=== PATIENT | male | born 1985 | race Caucasian/White ===

== ENCOUNTER 2018-08-01 11:54 | Emergency (ER) | payer OTHER ==
[2018-08-01 12:00] VITALS: RESP 18
--- NOTE | 2018-08-01 12:35 | ED ---
General Adult HPI - General Chief complaint: Recheck/Abnormal Lab/Rx Stated complaint: MISSED DIABETIC MEDICINE Source: patient Mode of arrival: ambulatory Limitations: no limitations - History of Present Illness Initial comments: Dictation was produced using [employer] dictation software. please excuse any grammatical, word or spelling errors. Chief Complaint: 33-year-old type I diabetic presents after he ran out of insulin. History of Present Illness: Patient is a 33-year-old male type 1 diabetes presents with runny of insulin. Patient takes he takes 03/17/1931 insulin. He takes 30 units in the morning and 40 units at night. Patient has not had his sugars checked and well. He does not have a glucometer. Patient presents with request for insulin administration. He has missed approximately 2 doses in the last 48 hours. Able to take insulin today because pharmacies are closed. No other complaints The ROS documented in this emergency department record has been reviewed and confirmed by me. Those systems with pertinent positive or negative responses have been documented in the HPI. All other systems are other negative and/or noncontributory. - Related Data Home Medications Medication Instructions Recorded Confirmed Insulin NPH/Reg Insulin 70/30 30 units SQ QAM 02/14/15 08/01/18 [humuLIN 70/30 VIAL] Insulin NPH/Reg Insulin 70/30 40 unit SQ HS 02/14/15 08/01/18 [humuLIN 70/30 VIAL] Allergies Allergy/AdvReac Type Severity Reaction Status Date / Time No Known Allergies Allergy Verified 08/01/18 12:08 Review of Systems ROS Statement: Those systems with pertinent positive or pertinent negative responses have been documented in the HPI. ROS Other: All systems not noted in ROS Statement are negative. Past Medical History Past Medical History: Diabetes Mellitus History of Any Multi-Drug Resistant Organisms: None Reported Past Surgical History: No Surgical Hx Reported Past Psychological History: ADD/ADHD Smoking Status: Current every day smoker Past Alcohol Use History: Occasional Past Drug Use History: Marijuana General Exam - General Exam Comments Initial Comments: PHYSICAL EXAM: General Impression: Alert and oriented x3, not in acute distress HEENT: Normocephalic atraumatic, extra-ocular movements intact, pupils equal and reactive to light bilaterally, mucous membranes moist. Cardiovascular: Heart regular rate and rhythm, S1&S2 audible, no murmurs, rubs or gallops Chest: Lungs clear to auscultation bilaterally, no rhonchi, no wheeze, no rales Abdomen: Bowel sounds present, abdomen soft, non-tender, non-distended, no organomegaly Musculoskeletal: Pulses present and equal in all extremities, no peripheral edema Motor: Power 5/5 bilaterally, no focal deficits noted Neurological: CN II-XII grossly intact, no focal motor or sensory deficits noted Skin: Intact with no visualized rashes Psych: Normal affect and mood Limitations: no limitations Course Vital Signs 08/01/18 11:58 Temperature 98.1 F Pulse Rate 100 Respiratory 18 Rate Blood Pressure 142/79 O2 Sat by Pulse 99 Oximetry Medical Decision Making - Medical Decision Making ED course: 33-year-old male past medical history of type 1 diabetes presents with insulin administration. Vital signs upon arrival are within normal limits. Physical examination is benign.Blood sugar is 281. Patient has stable hemodynamics. He has no other complaints. Patient given NovoLog mix 7030. No blood demonstration was discussed with pharmacy and is similar to patient's hemoglobin. Told that it significantly increases his insulin tonight and he can obtain his insulin tomorrow. Patient to be discharge. Is understandable and agreeable to plan. - Lab Data Lab Results 08/01/18 Range/Units 12:41 POC Glucose (mg/dL) 281 H (75-99) mg/dL POC Glu [employer] ID [email or web address] Disposition Clinical Impression: Medication refill Disposition: HOME SELF-CARE Condition: Good Is patient prescribed a controlled substance at d/c from ED?: No Referrals: Laurent Lundberg MD [Primary Care Provider] - 1-2 days Time of Disposition: 13:07
[2018-08-01 12:50] LABS: Glucose,Whole Blood 281 mg/dL (75-99)
[2018-08-01] MEDS ORDERED: INSULN ASP PRT/INSULIN ASPART 100 UNIT/ML 10 ML VIAL SQ ONE (13:04)
[2018-08-01 14:00] VITALS: BP 128/74; PULSE 89; TEMP 98
[2018-08-02 10:08] LABS: Hemoglobin A1C 7.7 % (4.0-6.0)
== END 2018-08-01 13:50 | disposition home or self-care (01) ==
LOC: EC 11:54
DX: Z76.0 Encounter for issue of repeat prescription (principal); E10.9 Type 1 diabetes mellitus without complications; F17.200 Nicotine dependence, unspecified, uncomplicated; Z79.4 Long term (current) use of insulin
CPT/HCPCS: 36415; 83036; 99281

== ENCOUNTER → 2024-05-31 | Outpatient (CLI) | payer BC ==
[2024-05-31 16:37] LABS: Microalbumin Creatinine Ratio <15 mg/g Cr (0-30); Urine Creatinine 82.1 mg/dL (39.0-259.0)
== END | disposition home or self-care (01) ==
LOC: LABWHC1 08:25
PROVIDERS: ATTEND Internal Medicine Endocrinology, Diabetes & Metabolism
DX: E10.65 Type 1 diabetes mellitus with hyperglycemia (principal)
CPT/HCPCS: 36415; 82043; 82570

== ENCOUNTER → 2024-12-05 | Outpatient (CLI) | payer BC ==
[2024-12-06 02:01] LABS: ALT 63 U/L (10-49); AST 37 U/L (14-35); Albumin 4.7 g/dL (3.8-4.9); Albumin/Globulin Ratio 1.74 Ratio (1.60-3.17); Alkaline Phosphatase 93 U/L (41-126); Blood Urea Nitrogen 18.9 mg/dL (9.0-27.0); Calcium 9.6 mg/dL (8.7-10.3); Carbon Dioxide 27.6 mmol/L (21.6-31.8); Chloride 104 mmol/L (96-109); Globulin 2.7 g/dL (1.6-3.3); Glucose 150 mg/dL (70-110); LDL Cholesterol,Calculated 102.3 mg/dL (0.0-131.0); Potassium 4.1 mmol/L (3.5-5.5); Sodium 142 mmol/L (135-145); Total Bilirubin 0.5 mg/dL (0.3-1.2); Total Protein 7.4 g/dL (6.2-8.2); VLDL Calculation 11.26 mg/dL (5.00-40.00)
== END | disposition home or self-care (01) ==
LOC: LABWHC1 16:15
PROVIDERS: ATTEND Internal Medicine Endocrinology, Diabetes & Metabolism
DX: E10.65 Type 1 diabetes mellitus with hyperglycemia (principal)
CPT/HCPCS: 36415; 80053; 80061; 82043; 82570; 83036; 84443